=== PATIENT | female | born 1930 | race Caucasian/White ===

== ENCOUNTER 2016-10-01 07:48 | Day surgery (SDC) | payer MEDICARE, OTHER ==
[~2016-10-01 07:48] MED LIST: CALCIUM CITRATE PO; CENTRUM SILVER PO; ESTER C PO; LUTEIN20 MG OR; MAGNESIUM PO; METANX PO; PRINZIDE1 TA1 PO; VITAMIN D31000 UNIT PO; ZESTORETIC1 TAB PO; ZINC PO
== END 2016-10-01 23:59 | disposition home or self-care (01) ==
LOC: SDC 07:48
PROVIDERS: Ophthalmology
PROC: 085K3ZZ Destruction of Left Lens, Percutaneous Approach (ICD-10-PCS; principal; 2016-10-01 08:30)
DX: H26.492 Other secondary cataract, left eye (principal); I10 Essential (primary) hypertension; Z79.899 Other long term (current) drug therapy; Z90.710 Acquired absence of both cervix and uterus; Z98.41 Cataract extraction status, right eye; Z98.42 Cataract extraction status, left eye; Z98.890 Other specified postprocedural states
CPT/HCPCS: A9270-GY